=== PATIENT | male | born 1980 | race Caucasian/White ===

== ENCOUNTER 2021-03-10 01:47 | Day surgery (SDC) | payer SELFPAY ==
[~2021-03-10] VITALS: Ht 177.8 cm; Wt 93.6 kg
[2021-03-10] VITALS (10 sets, daily range): BP systolic 120–152; BP diastolic 64–78; PULSE 71–101; TEMP 97.6–99.3
[2021-03-10 02:52] LABS: BASO % 0.2 % (0.0-2.0); EOS # 0.2 K/mm3 (0.0-0.7); EOS % 0.9 % (0-4.0); GRAN # 14.6 K/mm3 (1.4-6.5); HEMATOCRIT 45.9 % (42.0-52.0); HEMOGLOBIN 16.4 g/dl (13.5-18.0); LYMPH # 1.4 K/mm3 (1.2-3.4); LYMPH % 7.9 % (20.0-51.0); MEAN CELL VOLUME 83 fl (80.0-100.0); MEAN CORPUSCULAR HEMOGLOBIN 30 pg (27.0-31.0); MEAN CORPUSCULAR HGB CONC 36 g/dl (33.0-37.0); MEAN PLATELET VOLUME 9.6 fl (7.4-10.4); MONO # 1.1 K/mm3 (0.1-0.6); MONO % 6.4 % (1.7-9.3); PLATELET COUNT 262 K/mm3 (130-400); RED BLOOD COUNT 5.52 M/mm3 (4.20-5.60)
[2021-03-10 03:19] LABS: ALBUMIN 4.7 gm/dL (3.5-5.0); BILIRUBIN,TOTAL 0.6 mg/dL (0.2-1.2); CALCIUM 10.4 mg/dL (8.4-10.2); CREATININE, serum 0.84 mg/dL (0.72-1.25); POTASSIUM 3.9 mmol/L (3.5-4.5); TOTAL PROTEIN 8.2 gm/dL (6.2-8.1)
[2021-03-10 09:10] LABS: INR 1.1 (0.8-3.0); PROTHROMBIN TIME 11.7 SECONDS (9.7-12.8)
[2021-03-10] MEDS ORDERED: BUPRENORPHINE/NALOX (09:53)
--- NOTE | 2021-03-10 10:52 | NUR ---
Patient admitted from ER to room 331. Patient pain elevated. Requesting pain medication. I explained to him when next dose is due. He reports the 4 Mg of morphine is not working, wanting 8 mg. I did call who will be in to see patient & assess him & make further orders. Patient does have a strong accent making communication difficult at times. His sister at bedside. We reviewed his suboxane use.
--- NOTE | 2021-03-10 11:00 | NUR ---
Patient continues to report severe unmanamanged pain. Morphine given per orders now. Will monitor.
--- NOTE | 2021-03-10 13:09 | NUR ---
Patient to the OR with Moise Or nurse. Lr to gravity. COnsent obtained. Painent requesting pain medication, informed him Or with get him medication downstaits while he is closley monitor. His sister & mother are at bedside.
--- NOTE | 2021-03-10 14:09 | NUR ---
Plan is to return home. FERNANDA met with patient, sister, and mother in room. Patient gave verbal permission to talk in front of family. Patient used sister as braille translator. Unknown lauguage believed to be bahraini. Sister is Aster , Alternate contact is Vicky Gregory who is the brother in-law. Patient indicated that he uses [facility] for medications and that they prefer [facility]. Patient is okay with having a PCP recomendations and followup. Patient is insured. Patient currently has suboxone, unknown who is the prescribing. Patient reports that his pain is still unmanaged and is at a ten out of ten and he is having gas pains. Patient was educated on how to relieve gas pains. Pain idicator is incongreguent with patients actions. Notified aid of pain level reported. Patient denies the use of any DME supports. Will follow
[2021-03-10] MEDS ORDERED: AMOXICILLIN 8751 TAB PO ×3 (15:10→18:36)
[2021-03-10] MEDS ORDERED: MOTRIN 600600 MG/TAB PO ×3 (15:10→18:37)
[2021-03-10] MEDS ORDERED: PERCOCET 325 MG1 TA2 PO ×2 (15:11)
--- NOTE | 2021-03-10 17:55 | NUR ---
Patient has done well post op. Vitals stable on room air. He tolerated a meal without problems. No Nausea. He was up and voided without difficult. Gave discharge instructions to patient and his sisters. He is ready to go home. We reviewed discharge scripts. Patietn sister very upset about patient being prescribed percocet. I stress that patient does not have to pick script up. Sister continued to be upset about being prescribed 10 tabs given patient history. I called & made him aware of situation, he reports he will call Lacey to cancel script. Patient sister has been very vocal in her brothers care. Patient mother has also been at bedside & not spoke. Patient and sister speak in another language but speak to staff in vietnamese well. They deny other questions or concerns about discharge education. Patient ambulated out with all belongings.
== END 2021-03-10 18:00 | disposition home or self-care (01) ==
LOC: COL.ER 01:47 → SURG 06:22 → COL.ER 06:22 → SDCO 06:22 → SURG 18:00 → SDCO 18:00
PROVIDERS: Personal Emergency Response Attendant; Surgery
DX: K35.80 Unspecified acute appendicitis (principal); K38.1 Appendicular concretions; F17.290 Nicotine dependence, other tobacco product, uncomplicated; F11.11 Opioid abuse, in remission; Z79.899 Other long term (current) drug therapy
CPT/HCPCS: C9113; G0378; J0694; J1100; J1885; J2270; J2405; J2704; J3010; J3480; J7030; Q9967